=== PATIENT | male | born 1965 | race American Indian/Alaskan Native ===

== ENCOUNTER 2020-04-23 15:58 | Inpatient (IN) | payer SELFPAY ==
--- NOTE | 2020-04-23 17:01 | Emergency Department Report ---
<ETTA KU - Last Filed: 04/23/20 21:46> ED General Adult HPI - General Chief complaint: Dyspnea/Respdistress Stated complaint: SOB Time Seen by Provider: 04/23/20 16:27 - Related Data Home Medications Medication Instructions Recorded Confirmed Last Taken No Known Home Medications [No 04/24/20 04/24/20 Unknown Reported Home Medications] Allergies Allergy/AdvReac Type Severity Reaction Status Date / Time No Known Allergies Allergy Unverified 04/23/20 16:38 ED Past Medical Hx - Medications Home Medications: Home Medications Medication Instructions Recorded Confirmed Last Taken Type No Known Home Medications [No 04/24/20 04/24/20 Unknown History Reported Home Medications] ED Medical Decision Making - Lab Data Result diagrams: 04/23/20 17:12 04/23/20 17:12 - Radiology Data [facility] [address] [id number] Cat Scan Report Signed Patient: MARANDA ACOSTA MR# : [id number] : 1965 Acct:[id number] Age/Sex: 54 / M ADM Date: 04/23/20 Loc: ED Attending Dr: Ordering Physician: ANNE ROSE MD Date of Service: 04/23/20 Procedure(s): CT angio chest Accession Number(s): [id number] cc: ANNE ROSE MD CTA CHEST WITH IV CONTRAST INDICATION: Shortness of breath and elevated d-dimer. TECHNIQUE: Axial CT images were obtained through the chest after injection of 100 mL Omnipaque 350 IV contrast. 3 plane MIP reconstructions were produced. All CT scans at this location are performed using CT dose reduction for ALARA by means of automated exposure control. COMPARISON: None available. FINDINGS: Pulmonary Arteries: No pulmonary emboli. Lungs: No acute findings. There is a 4 mm nodule in the right lower lobe. There is a 4 mm nodule in the medial right upper lobe. Trachea and Bronchi: No significant abnormality. Heart and Pericardium: No significant abnormality. Vasculature: No significant abnormality. Lymphatics: No lymphadenopathy. Additional Findings: None. Upper Abdomen: Multiple renal cysts are seen. Skeletal Structures: No acute findings or aggressive bone lesions. IMPRESSION: 1. No CT evidence for pulmonary embolism. 2. No acute findings. 2. Incidental small 4 mm nodules in the right lung. See below for follow-up rec ommendation. INCIDENTAL PULMONARY NODULE RECOMMENDATION RECOMMENDATION: Solid Nodule size <6 mm -- Single or Multiple - Low Risk Patient: No routine follow-up - High Risk Patient: Optional CT at 12 months Note These recommendations do not apply to lung cancer screening, patients with immunosuppression, or patients with known primary cancer. Note Newly detected indeterminate nodule in persons 35 years of age or older. Persons under the age of 35 should not receive follow-up unless there is a known primary cancer. Note Perifissural Nodule is a fissure-attached/subpleural, homogeneous, solid nodule that has smooth margins and an oval, lentiform, or triangular shape. They represent about 20% of nodules detected in lung cancer screening, are invariably benign, and do not require follow-up. Nodules 10 mm or larger (or those with suspicious features) will continue to be managed based on the size criteria. Low Risk Patient = minimal or absent history of smoking and of other known risk factors. High Risk Patient = history of smoking or of other known risk factors. Nodule dimensions are average of long and short axes, rounded to the nearest millimeter. Based on 2017 Fleischner Society Guidelines found in Radiology 2017 284:228-243. https://doi.org/10.1148/radiol.2837473592 https://www.ncbi.nlm.nih.gov/pmc/articles/PLG5678855/ Signer Name: Chilo Hubbard MD Signed: 04/23/2020 8:11 PM Workstation Name: [id number] Transcribed By: GREGORIA Dictated By: Chilo Hubbard MD Electronically Authenticated By: Chilo Hubbard MD Signed Date/Time: 04/23/202010 - Medical Decision Making Patient to be admitted to the hospitalist service. ED Disposition Clinical Impression: Suspected 2019 novel coronavirus infection, Dyspnea, Hypoxia Disposition: 09 OP ADMIT IP TO THIS HOSP Condition: Fair Time of Disposition: 21:47 <ANNE ROSE - Last Filed: 04/25/20 06:34> ED General Adult HPI - General PUI?: Yes Source: patient, EMS ( EMS documentation not available at time of chart d ictation ), RN notes reviewed Limitations: Physical Limitation - History of Present Illness Initial comments: The patient was evaluated in the emergency department for symptoms described in the history of present illness. He/she was evaluated in the context of the global COVID-19 pandemic, which necessitated consideration that the patient might be at risk for infection with the virus that causes COVID-19. Institutional protocols and algorithms that pertain to the evaluation of patients at risk for COVID-19 are in a state of rapid change based on information released by regulatory bodies including the CDC and federal and stat e organizations. These policies and algorithms were followed during the patient's care in the emergency department. Please note that these policies, procedures and recommendations changed on a rapid basis. During the entire history and physical examination, I had on complete personal protective equipment. This is a 54-year-old gentleman. He is not known to myself previously. He does not have a primary care doctor. He does not have medical conditions that he is aware of. Patient brought to the hospital by emergency medical services with a complaint of painless shortness of breath since last night. Patient denies headache, neck pain, chest pain, abdominal pain, hematemesis, bright red blood per rectum. He recently flew to [place]. No loss of taste. No loss of smell. No exposure to Covid positive individuals that he is aware of. Symptoms constant, worsened with physical exertion, worsened with lying flat, decreased with rest, position, sitting upright, and with oxygen. Apparently, patient hypoxic in the field, saturating at 91, 92% on room air. Requires 4 L of nasal cannula supplemental oxygen. -: days(s) Consistency: constant Improves with: other Worsens with: other ED Review of Systems ROS: Stated complaint: SOB Other details as noted in HPI Comment: All other systems reviewed and negative Constitutional: malaise, weakness. denies: fever ENT: congestion Respiratory: cough, shortness of breath, SOB with exertion, SOB at rest. denies: wheezing Cardiovascular: denies: chest pain, syncope Gastrointestinal: denies: abdominal pain, nausea, vomiting, hematemesis, melena, hematochezia Neurological: weakness ED Past Medical Hx - Past Medical History Previous Medical History?: No - Surgical History Past Surgical History?: No - Social History Smoking Status: Current Every Day Smoker ED Physical Exam - General Limitations: Physical Limitation General appearance: alert, in distress, obese - Head Head exam: Present: atraumatic, normocephalic - Eye Eye exam: Present: normal appearance, EOMI. Absent: nystagmus - ENT ENT exam: Present: normal exam, normal orophraynx, mucous membranes moist, normal external ear exam - Neck Neck exam: Present: normal inspection, full ROM. Absent: tenderness, meningismus - Respiratory Respiratory exam: Present: respiratory distress, rhonchi - Cardiovascular Cardiovascular Exam: Present: regular rate, normal rhythm, normal heart sounds. Absent: bradycardia, tachycardia, irregular rhythm, systolic murmur, diastolic murmur, rubs, gallop - GI/Abdominal GI/Abdominal exam: Present: soft, normal bowel sounds. Absent: distended, tenderness, guarding, rebound, rigid, pulsatile mass - Rectal Rectal exam: Present: deferred - Extremities Exam Extremities exam: Present: normal inspection, full ROM, other (2+ pulses noted in the bilateral upper and lower extremities. There is no palpable cord. negative Homans sign. Muscular compartments are soft. The pelvis is stable.). Absent: pedal edema, calf tenderness - Back Exam Back exam: Present: normal inspection, full ROM. Absent: tenderness, CVA tenderness (R), CVA tenderness (L), paraspinal tenderness, vertebral tenderness - Neurological Exam Neurological exam: Present: alert, other (No facial droop. Tongue midline. Extraocular movements intact bilaterally. Facial sensation intact to light touch in V1, V2, V3 distribution bilaterally. 5 and a 5 strength in 4 extremities. Sensation intact to light touch in 4 extremities.). Absent: motor sensory deficit - Psychiatric Psychiatric exam: Present: anxious - Skin Skin exam: Present: warm, dry, intact, normal color. Absent: rash ED Course Vital Signs 04/23/20 04/23/20 04/23/20 17:50 19:01 19:15 Temperature Pulse Rate 99 H Respiratory 16 Rate Blood Pressure 136/67 136/67 Blood Pressure 154/91 [Left] O2 Sat by Pulse 93 94 96 Oximetry 04/23/20 04/23/20 04/23/20 19:30 19:57 20:01 Temperature Pulse Rate 100 H Respiratory 19 Rate Blood Pressure 131/107 131/107 158/80 Blood Pressure [Left] O2 Sat by Pulse 93 95 95 Oximetry 04/23/20 04/23/20 04/23/20 20:02 20:15 20:31 Temperature 98.9 F Pulse Rate 110 H 104 H Respiratory 27 H 36 H Rate Blood Pressure 158/80 158/80 Blood Pressure [Left] O2 Sat by Pulse Oximetry 04/23/20 04/23/20 04/23/20 20:45 21:01 21:15 Temperature Pulse Rate 99 H 120 H Respiratory 19 17 25 H Rate Blood Pressure 158/80 120/102 120/102 Blood Pressure [Left] O2 Sat by Pulse Oximetry 04/23/20 04/23/20 04/23/20 21:31 21:45 22:01 Temperature Pulse Rate 103 H 99 H 103 H Respiratory 25 H 27 H 22 Rate Blood Pressure 143/83 143/83 150/92 Blood Pressure [Left] O2 Sat by Pulse Oximetry 04/23/20 04/23/20 04/23/20 22:15 22:26 22:30 Temperature Pulse Rate 97 H 110 H Respiratory 20 30 H Rate Blood Pressure 150/92 150/92 137/71 Blood Pressure [Left] O2 Sat by Pulse Oximetry 04/23/20 04/23/20 04/23/20 23:01 23:15 23:21 Temperature Pulse Rate 97 H 112 H Respiratory 24 31 H Rate Blood Pressure 159/72 159/72 159/72 Blood Pressure [Left] O2 Sat by Pulse 90 92 Oximetry 04/23/20 04/23/20 04/24/20 23:31 23:45 00:00 Temperature Pulse Rate 96 H 91 H 96 H Respiratory 19 18 25 H Rate Blood Pressure 170/97 159/72 145/83 Blood Pressure [Left] O2 Sat by Pulse 90 96 98 Oximetry 04/24/20 04/24/20 04/24/20 00:15 00:30 00:45 Temperature Pulse Rate 93 H 102 H 93 H Respiratory 25 H 22 27 H Rate Blood Pressure 145/83 139/87 139/87 Blood Pressure [Left] O2 Sat by Pulse 97 92 95 Oximetry 04/24/20 04/24/20 04/24/20 01:00 01:15 01:31 Temperature Pulse Rate 86 82 Respiratory 23 18 24 Rate Blood Pressure 149/75 149/75 123/74 Blood Pressure [Left] O2 Sat by Pulse 93 98 Oximetry 04/24/20 04/24/20 04/24/20 01:45 02:00 02:15 Temperature Pulse Rate 86 91 H Respiratory 22 25 H 24 Rate Blood Pressure 123/74 133/78 133/78 Blood Pressure [Left] O2 Sat by Pulse Oximetry 04/24/20 04/24/20 04/24/20 02:30 02:45 03:00 Temperature Pulse Rate 94 H 105 H 88 Respiratory 24 33 H 26 H Rate Blood Pressure 163/73 163/73 102/56 Blood Pressure [Left] O2 Sat by Pulse 90 Oximetry 04/24/20 04/24/20 04/24/20 03:15 03:30 03:45 Temperature Pulse Rate 93 H 90 100 H Respiratory 24 21 30 H Rate Blood Pressure 102/56 125/76 125/76 Blood Pressure [Left] O2 Sat by Pulse Oximetry 04/24/20 04/24/20 04/24/20 04:00 04:15 04:30 Temperature Pulse Rate 83 85 83 Respiratory 21 23 22 Rate Blood Pressure 123/58 123/58 128/63 Blood Pressure [Left] O2 Sat by Pulse Oximetry 04/24/20 04/24/20 04/24/20 06:15 06:30 06:45 Temperature Pulse Rate 92 H 87 85 Respiratory 20 21 18 Rate Blood Pressure 146/73 142/85 132/79 Blood Pressure [Left] O2 Sat by Pulse Oximetry 04/24/20 04/24/20 04/24/20 07:00 07:15 07:31 Temperature Pulse Rate 87 91 H 119 H Respiratory 35 H 19 28 H Rate Blood Pressure 121/67 121/67 121/67 Blood Pressure [Left] O2 Sat by Pulse Oximetry 04/24/20 04/24/20 04/24/20 07:45 08:00 08:15 Temperature Pulse Rate 93 H 96 H 96 H Respiratory 24 21 30 H Rate Blood Pressure 121/67 118/88 118/88 Blood Pressure [Left] O2 Sat by Pulse Oximetry 04/24/20 04/24/20 04/24/20 08:30 08:45 09:01 Temperature Pulse Rate 92 H 96 H 96 H Respiratory 31 H 22 28 H Rate Blood Pressure 138/68 138/68 138/68 Blood Pressure [Left] O2 Sat by Pulse Oximetry 04/24/20 04/24/20 04/24/20 09:15 09:31 09:45 Temperature Pulse Rate 91 H 93 H 89 Respiratory 37 H 22 22 Rate Blood Pressure 136/109 140/78 140/78 Blood Pressure [Left] O2 Sat by Pulse Oximetry 04/24/20 04/24/20 04/24/20 10:00 10:15 10:30 Temperature Pulse Rate 87 82 82 Respiratory 24 21 20 Rate Blood Pressure 137/93 137/93 139/82 Blood Pressure [Left] O2 Sat by Pulse Oximetry 04/24/20 04/24/20 04/24/20 10:45 11:01 11:15 Temperature Pulse Rate 94 H 92 H 93 H Respiratory 25 H 21 21 Rate Blood Pressure 139/82 134/48 134/48 Blood Pressure [Left] O2 Sat by Pulse Oximetry 04/24/20 04/24/20 04/24/20 11:31 11:45 12:01 Temperature Pulse Rate 99 H 106 H 93 H Respiratory 32 H 34 H 24 Rate Blood Pressure 153/84 153/84 156/126 Blood Pressure [Left] O2 Sat by Pulse Oximetry 04/24/20 04/24/20 04/24/20 12:15 12:31 12:45 Temperature Pulse Rate 97 H 95 H 94 H Respiratory 19 15 24 Rate Blood Pressure 156/126 126/67 126/67 Blood Pressure [Left] O2 Sat by Pulse Oximetry 04/24/20 04/24/20 04/24/20 13:01 13:15 13:31 Temperature Pulse Rate 102 H 97 H 94 H Respiratory 36 H 23 25 H Rate Blood Pressure 166/136 166/136 129/60 Blood Pressure [Left] O2 Sat by Pulse Oximetry 04/24/20 04/24/20 04/24/20 13:45 14:00 14:15 Temperature Pulse Rate 94 H 94 H 109 H Respiratory 24 26 H 21 Rate Blood Pressure 129/60 129/60 162/86 Blood Pressure [Left] O2 Sat by Pulse Oximetry 04/24/20 04/24/20 04/24/20 14:31 14:45 15:01 Temperature Pulse Rate 94 H 97 H 100 H Respiratory 34 H 29 H 30 H Rate Blood Pressure 138/85 138/85 138/85 Blood Pressure [Left] O2 Sat by Pulse Oximetry 04/24/20 04/24/20 04/24/20 15:15 15:30 15:45 Temperature Pulse Rate 98 H 85 91 H Respiratory 22 19 32 H Rate Blood Pressure 125/90 126/76 126/76 Blood Pressure [Left] O2 Sat by Pulse Oximetry 04/24/20 04/24/20 04/24/20 16:01 16:15 16:30 Temperature Pulse Rate 89 89 87 Respiratory 27 H 22 25 H Rate Blood Pressure 126/76 101/74 140/97 Blood Pressure [Left] O2 Sat by Pulse Oximetry 04/24/20 04/24/20 04/24/20 16:45 17:01 17:15 Temperature Pulse Rate 97 H 94 H 110 H Respiratory 35 H 38 H 31 H Rate Blood Pressure 140/97 140/97 140/97 Blood Pressure [Left] O2 Sat by Pulse Oximetry 04/24/20 04/24/20 04/24/20 17:31 17:45 18:01 Temperature Pulse Rate 100 H 100 H 96 H Respiratory 27 H 35 H 28 H Rate Blood Pressure 140/97 168/104 147/107 Blood Pressure [Left] O2 Sat by Pulse Oximetry 04/24/20 04/24/20 04/24/20 18:15 18:31 18:46 Temperature Pulse Rate 95 H 92 H 94 H Respiratory 37 H 38 H 29 H Rate Blood Pressure 147/107 140/118 140/118 Blood Pressure [Left] O2 Sat by Pulse Oximetry 04/24/20 04/24/20 04/24/20 19:00 19:15 19:30 Temperature Pulse Rate 94 H 90 94 H Respiratory 31 H 34 H 29 H Rate Blood Pressure 164/112 140/118 151/99 Blood Pressure [Left] O2 Sat by Pulse Oximetry 04/24/20 04/24/20 04/24/20 19:33 19:41 19:51 Temperature Pulse Rate 94 H 87 87 Respiratory 18 19 20 Rate Blood Pressure 151/99 151/99 Blood Pressure 151/90 [Left] O2 Sat by Pulse Oximetry 04/24/20 20:01 Temperature Pulse Rate 85 Respiratory 23 Rate Blood Pressure 149/80 Blood Pressure [Left] O2 Sat by Pulse Oximetry - Reevaluation(s) Reevaluation #1: 04/23/20 19:31 Differential diagnosis, including but not limited to: COVID-19, pneumonia, congestive heart failure, pulmonary embolism, pericardial effusion Anemia Assessment and plan: 54-year-old gentleman status post recent [place] flight to [place], now with painless shortness of breath, requiring supplemental oxygen. Initiate isolation precautions. Send appropriate Covid labs. Give patient steroids empirically, x-ray the chest clear, continue supplemental oxygen, D- dimer elevated, CT scan of the chest will be obtained. Anticipate admission once initial diagnostics have resulted. Discussed plan of care with the patient, who verbalized understanding, and is amenable to this plan of care. Care will be transferred to the oncoming ER physician, Dr. Thong Ku, To follow- up on CT scan of the chest, and admit patient to the appropriate service. ED Medical Decision Making - Lab Data Result diagrams: 04/23/20 17:12 04/23/20 17:12 Vital Signs 04/23/20 17:50 Pulse Rate 99 H Respiratory 16 Rate Blood Pressure 154/91 [Left] O2 Sat by Pulse 93 Oximetry Lab Results 04/23/20 04/23/20 04/23/20 Range/Units 17:12 17:12 17:12 WBC 13.0 H (4.5-11.0) K/mm3 RBC 4.55 (3.65-5.03) M/mm3 Hgb 13.6 (11.8-15.2) gm/dl Hct 39.2 (35.5-45.6) % MCV 86 (84-94) fl MCH 30 (28-32) pg MCHC 35 H (32-34) % RDW 15.0 (13.2-15.2) % Plt Count 313 (140-440) K/mm3 Lymph % (Auto) 8.7 L (13.4-35.0) % Cook % (Auto) 5.5 (0.0-7.3) % Eos % (Auto) 0.8 (0.0-4.3) % Baso % (Auto) 0.3 (0.0-1.8) % Lymph # (Auto) 1.1 L (1.2-5.4) K/mm3 Cook # (Auto) 0.7 (0.0-0.8) K/mm3 Eos # (Auto) 0.1 (0.0-0.4) K/mm3 Baso # (Auto) 0.0 (0.0-0.1) K/mm3 Seg Neutrophils % 84.7 H (40.0-70.0) % Seg Neutrophils # 11.0 H (1.8-7.7) K/mm3 PT 12.2 (12.2-14.9) Sec. INR 0.89 (0.87-1.13) D-Dimer 758.91 H (0-234) ng/mlDDU Sodium 142 (137-145) mmol/L Potassium 3.5 L (3.6-5.0) mmol/L Chloride 105.1 (98-107) mmol/L Carbon Dioxide 28 (22-30) mmol/L Anion Gap 12 mmol/L BUN 9 (9-20) mg/dL Creatinine 1.0 (0.8-1.3) mg/dL Estimated GFR > 60 ml/min BUN/Creatinine Ratio 9 % Glucose 100 (75-100) mg/dL Lactic Acid (0.7-2.0) mmol/L Calcium 9.4 (8.4-10.2) mg/dL Magnesium 1.90 (1.7-2.3) mg/dL Ferritin (30.0-300.0) ng/mL Total Bilirubin 0.30 (0.1-1.2) mg/dL AST 21 (5-40) units/L ALT 18 (7-56) units/L Alkaline Phosphatase 70 (35-129) units/L Lactate Dehydrogenase 215 H (91-180) units/L Total Creatine Kinase 429 H (55-170) units/L Troponin T (0.00-0.029) ng/mL C-Reactive Protein 4.40 H (0.00-1.30) mg/dL NT-Pro-B Natriuret Pep (0-900) pg/mL Total Protein 7.8 (6.3-8.2) g/dL Albumin 4.2 (3.9-5) g/dL Albumin/Globulin Ratio 1.2 % 04/23/20 04/23/20 04/23/20 Range/Units 17:12 17:12 17:12 WBC (4.5-11.0) K/mm3 RBC (3.65-5.03) M/mm3 Hgb (11.8-15.2) gm/dl Hct (35.5-45.6) % MCV (84-94) fl MCH (28-32) pg MCHC (32-34) % RDW (13.2-15.2) % Plt Count (140-440) K/mm3 Lymph % (Auto) (13.4-35.0) % Cook % (Auto) (0.0-7.3) % Eos % (Auto) (0.0-4.3) % Baso % (Auto) (0.0-1.8) % Lymph # (Auto) (1.2-5.4) K/mm3 Cook # (Auto) (0.0-0.8) K/mm3 Eos # (Auto) (0.0-0.4) K/mm3 Baso # (Auto) (0.0-0.1) K/mm3 Seg Neutrophils % (40.0-70.0) % Seg Neutrophils # (1.8-7.7) K/mm3 PT (12.2-14.9) Sec. INR (0.87-1.13) D-Dimer (0-234) ng/mlDDU Sodium (137-145) mmol/L Potassium (3.6-5.0) mmol/L Chloride (98-107) mmol/L Carbon Dioxide (22-30) mmol/L Anion Gap mmol/L BUN (9-20) mg/dL Creatinine (0.8-1.3) mg/dL Estimated GFR ml/min BUN/Creatinine Ratio % Glucose (75-100) mg/dL Lactic Acid 1.00 (0.7-2.0) mmol/L Calcium (8.4-10.2) mg/dL Magnesium (1.7-2.3) mg/dL Ferritin 438.2 H (30.0-300.0) ng/mL Total Bilirubin (0.1-1.2) mg/dL AST (5-40) units/L ALT (7-56) units/L Alkaline Phosphatase (35-129) units/L Lactate Dehydrogenase (91-180) units/L Total Creatine Kinase (55-170) units/L Troponin T < 0.010 (0.00-0.029) ng/mL C-Reactive Protein (0.00-1.30) mg/dL NT-Pro-B Natriuret Pep 134.1 (0-900) pg/mL Total Protein (6.3-8.2) g/dL Albumin (3.9-5) g/dL Albumin/Globulin Ratio % - EKG Data 04/23/20 19:28 No prior EKG available for comparison. Sinus rhythm, 92 bpm, left axis deviation, left anterior fascicular block, left ventricular hypertrophy, low voltage in the inferior leads. The EKG is abnormal. The EKG is not a STEMI. First-degree AV block. No prior for comparison - Radiology Data Radiology results: pending, report reviewed, image reviewed Print Report Referring Physician: ANNE ROSE Patient Name: MARANDA ACOSTA Date of : 1965 Sex: Male Report Date: 2020-04-23 Report Status: Finalized Findings [facility] [address] [place] [address] XRay Report Signed Patient: MARANDA ACOSTA MR# : [id number] : 1965 Acct:[id number] Age/Sex: 54 / M ADM Date: 04/23/20 Loc: ED Attending Dr: Ordering Physician: ANNE ROSE MD Date of Service: 04/23/20 Procedure(s): XR chest 1V ap Accession Number(s): [id number] cc: ANNE ROSE MD Fluoro Time In Minutes: CHEST 1 VIEW 04/23/2020 4:54 PM INDICATION / CLINICAL INFORMATION: Dyspnea. COMPARISON: None available. FINDINGS: SUPPORT DEVICES: None. HEART / MEDIASTINUM: No significant abnormality. LUNGS / PLEURA: No significant pulmonary or pleural abnormality. No pneumothorax. ADDITIONAL FINDINGS: No significant additional findings. IMPRESSION: 1. No acute findings. Signer Name: Chilo Hubbard MD Signed: 04/23/2020 5:55 PM Workstation Name: [id number] Transcribed By: GREGORIA Dictated By: Chilo Hubbard MD Electronically Authenticated By: Chilo Hubbard MD Signed Date/Time: 04/23/201754 DD/ 54 TD/TT: Critical Care Time: Yes Critical care time in (mins) excluding proc time.: 35 Critical care attestation.: If time is entered above; I have spent that time in minutes in the direct care of this critically ill patient, excluding procedure time. ED Disposition Is pt being admited?: Yes Does the pt Need Aspirin: No
--- NOTE | 2020-04-23 18:00 | XRay Report ---
CHEST 1 VIEW 04/23/2020 4:54 PM INDICATION / CLINICAL INFORMATION: Dyspnea. COMPARISON: None available. FINDINGS: SUPPORT DEVICES: None. HEART / MEDIASTINUM: No significant abnormality. LUNGS / PLEURA: No significant pulmonary or pleural abnormality. No pneumothorax. ADDITIONAL FINDINGS: No significant additional findings. IMPRESSION: 1. No acute findings. Signer Name: Chilo Hubbard MD Signed: 04/23/2020 5:55 PM Workstation Name: [id number]
[2020-04-23 18:10] LABS: Basophils % (Auto) 0.3 % (0.0-1.8); Eosinophils # (Auto) 0.1 K/mm3 (0.0-0.4); Eosinophils % (Auto) 0.8 % (0.0-4.3); Hematocrit 39.2 % (35.5-45.6); Hemoglobin 13.6 gm/dl (11.8-15.2); Lymphocytes # (Auto) 1.1 K/mm3 (1.2-5.4); Lymphocytes % (Auto) 8.7 % (13.4-35.0); Mean Corpuscular HGB Conc 35 % (32-34); Mean Corpuscular Volume 86 fl (84-94); Monocytes # (Auto) 0.7 K/mm3 (0.0-0.8); Monocytes % (Auto) 5.5 % (0.0-7.3); Platelet Count 313 K/mm3 (140-440); Red Blood Count 4.55 M/mm3 (3.65-5.03)
[2020-04-23 18:12] LABS: Alanine Aminotransferase 18 units/L (7-56); Albumin 4.2 g/dL (3.9-5); BUN/Creatinine Ratio 9; Blood Urea Nitrogen 9 mg/dL (9-20); Calcium 9.4 mg/dL (8.4-10.2); Hemolysis Index 4
[2020-04-23 18:24] LABS: INR 0.89 (0.87-1.13)
[2020-04-23] MEDS ORDERED: dexAMETHasone 4 MG/ML VIAL IV ONE (18:31)
[2020-04-23] MEDS ORDERED: SODIUM CHLORIDE 0.9% 250ML 250 ML IV ONE (18:32)
--- NOTE | 2020-04-23 20:16 | Cat Scan Report ---
CTA CHEST WITH IV CONTRAST INDICATION: Shortness of breath and elevated d-dimer. TECHNIQUE: Axial CT images were obtained through the chest after injection of 100 mL Omnipaque 350 IV contrast. 3 plane MIP reconstructions were produced. All CT scans at this location are performed using CT dose reduction for ALARA by means of automated exposure control. COMPARISON: None available. FINDINGS: Pulmonary Arteries: No pulmonary emboli. Lungs: No acute findings. There is a 4 mm nodule in the right lower lobe. There is a 4 mm nodule in t he medial right upper lobe. Trachea and Bronchi: No significant abnormality. Heart and Pericardium: No significant abnormality. Vasculature: No significant abnormality. Lymphatics: No lymphadenopathy. Additional Findings: None. Upper Abdomen: Multiple renal cysts are seen. Skeletal Structures: No acute findings or aggressive bone lesions. IMPRESSION: 1. No CT evidence for pulmonary embolism. 2. No acute findings. 2. Incidental small 4 mm nodules in the right lung. See below for follow-up recommendation. INCIDENTAL PULMONARY NODULE RECOMMENDATION RECOMMENDATION: Solid Nodule size <6 mm -- Single or Multiple - Low Risk Patient: No routine follow-up - High Risk Patient: Optional CT at 12 months Note These recommendations do not apply to lung cancer screening, patients with immunosuppression, o r patients with known primary cancer. Note Newly detected indeterminate nodule in persons 35 years of age or older. Persons under the age of 35 should not receive follow-up unless there is a known primary cancer. Note Perifissural Nodule is a fissure-attached/subpleural, homogeneous, solid nodule that has smooth margins and an oval, lentiform, or triangular shape. They represent about 20% of nodules detected in lung cancer screening, are invariably benign, and do not require follow-up. Nodules 10 mm or larger (or those with suspicious features) will continue to be managed based on the size criteria. Low Risk Patient = minimal or absent history of smoking and of other known risk factors. High Risk Patient = history of smoking or of other known risk factors. Nodule dimensions are average of long and short axes, rounded to the nearest millimeter. Based on 2017 Fleischner Society Guidelines found in Radiology 2017 284:228-243. https://doi.org/10.1148/radiol.[email or web address] https://www.ncbi.nlm.nih.gov/pmc/articles/OOT0232943/ Signer Name: Chilo Hubbard MD Signed: 04/23/2020 8:11 PM Workstation Name: [id number]
[2020-04-23] MEDS ORDERED: ALUM-MAG HYDROXIDE-SIMETHICONE 200-200-20MG/5ML ORAL LIQD 30 ML PO PRN (22:34)
[2020-04-23] MEDS ORDERED: ONDANSETRON 4 MG/2 ML INJ IV PRN (22:34)
[2020-04-23] MEDS ORDERED: ACETAMINOPHEN 325 MG TAB PO PRN (22:36)
[2020-04-23] MEDS ORDERED: hydrALAZINE 20 MG/1 ML INJ IV PRN (22:37)
--- NOTE | 2020-04-23 22:39 | History and Physical Report ---
History of Present Illness Date of examination: 04/23/20 Date of admission: 04/23/20 Chief complaint: Shortness of breath History of present illness: This is a 54 year old male who presents to ED with worsening shortness of breath and cough. 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 He is evaluated in the context of the global COVID-19 pandemic, which necessitated consideration that the patient might be at risk for infection with the virus that causes COVID-19. patient seen in ED at bedside. patient has shortness of breath, cough and wheezing at the time of assessment. Patient admits marijuana use and he is on oxygen with 02 sat 96 to 98 %. Reviewed lab, mar, and v/s. patient lab shows elevated inflammatory makers including d-dimer, ferritin, LDH, and CRP. Patient is placed on airborne contact isolation pending covid 19 test result. Ed work up shows WBC 13.0, potassium 3.5, C02 28, Cr 1.0, ferritin 438, d-dimer 758 Hemoglobin 13.6 Chest x-ray shows no acute finding Past History Past Surgical History: No surgical history Social history: no significant social history Family history: no significant family history Medications and Allergies Allergies Allergy/AdvReac Type Severity Reaction Status Date / Time No Known Allergies Allergy Unverified 04/23/20 16:38 Review of Systems Ears, nose, mouth and throat: headache Respiratory: cough, congestion, wheezing Gastrointestinal: nausea Exam - Constitutional Vitals: Temp Pulse Resp BP Pulse Ox 98.9 F 99 H 17 131/107 93 04/23/20 20:02 04/23/20 17:50 04/23/20 17:50 04/23/20 19:30 04/23/20 19:30 General appearance: Present: mild distress, obese - EENT Eyes: Present: PERRL ENT: hearing intact, clear oral mucosa - Neck Neck: Present: supple, normal ROM - Respiratory Respiratory effort: other (shortness of breath and cough) Respiratory: bilateral: wheezing - Cardiovascular Heart rate: 99 Heart Sounds: Present: S1 & S2. Absent: rub, click - Extremities Extremities: pulses symmetrical, No edema Peripheral Pulses: within normal limits - Integumentary Integumentary: Present: clear - Musculoskeletal Musculoskeletal: strength equal bilaterally - Psychiatric Psychiatric: appropriate mood/affect, intact judgment & insight, cooperative - Neurologic Neurologic: CNII-XII intact, moves all extremities - Allied Health Allied health notes reviewed: nursing HEART Score - HEART Score Troponin: Troponin T < 0.010 ng/mL (0.00-0.029) 04/23/20 17:12 Results - Labs CBC & Chem 7: 04/23/20 17:12 04/23/20 17:12 Labs: Abnormal lab results 04/23/20 04/23/20 04/23/20 Range/Units 17:12 17:12 17:12 WBC 13.0 H (4.5-11.0) K/mm3 MCHC 35 H (32-34) % Lymph % (Auto) 8.7 L (13.4-35.0) % Lymph # (Auto) 1.1 L (1.2-5.4) K/mm3 Seg Neutrophils % 84.7 H (40.0-70.0) % Seg Neutrophils # 11.0 H (1.8-7.7) K/mm3 D-Dimer 758.91 H (0-234) ng/mlDDU Potassium 3.5 L (3.6-5.0) mmol/L Ferritin (30.0-300.0) ng/mL Lactate Dehydrogenase 215 H (91-180) units/L Total Creatine Kinase 429 H (55-170) units/L C-Reactive Protein 4.40 H (0.00-1.30) mg/dL 04/23/20 Range/Units 17:12 WBC (4.5-11.0) K/mm3 MCHC (32-34) % Lymph % (Auto) (13.4-35.0) % Lymph # (Auto) (1.2-5.4) K/mm3 Seg Neutrophils % (40.0-70.0) % Seg Neutrophils # (1.8-7.7) K/mm3 D-Dimer (0-234) ng/mlDDU Potassium (3.6-5.0) mmol/L Ferritin 438.2 H (30.0-300.0) ng/mL Lactate Dehydrogenase (91-180) units/L Total Creatine Kinase (55-170) units/L C-Reactive Protein (0.00-1.30) mg/dL Assessment and Plan - Patient Problems (1) Suspected 2019 novel coronavirus infection Current Visit: Yes Status: Acute Plan to address problem: Elevated inflammatory makers F/u with covid 19 test continue airborne and contact Isolation (2) Acute respiratory failure with hypoxia Current Visit: Yes Status: Acute Plan to address problem: Likely 2/2 covid viral infection Bronchodilator and systemic steroid Empiric abx with azithromycin (3) Dyspnea Current Visit: Yes Status: Acute Plan to address problem: shortness of breath with wheezing on auscultation continue oxygen supplement and systemic steroids Chest x-ray -no acute finding ABgs (4) Marijuana smoker Current Visit: Yes Status: Acute Plan to address problem: discussed cannabis use cessation (5) Leucocytosis Current Visit: Yes Status: Acute Plan to address problem: likely 2/2 to viral/bacterial infection Blood culture -f/u with result Urinalysis Start empiric abx with rocephine Chest x-ray negative for acute finding monitor WBC (6) DVT prophylaxis Current Visit: Yes Status: Acute Plan to address problem: Lovenox (7) ACP (advance care planning) Current Visit: Yes Status: Acute Plan to address problem: discussed plan of care patient is full code
[2020-04-24] MEDS: traZODone 50 MG TAB PO SCH ×2 (00:21→21:28)
[2020-04-24] MEDS: ASCORBIC ACID 500 MG TAB PO SCH ×3 (00:21→21:28)
[2020-04-24 03:16] LABS: Bilirubin,Urine NEG (Negative); Blood,Urine LG (Negative); Color,Urine Yellow (Yellow); Mucus,Urine FEW /HPF; Protein,Urine <15 mg/dL mg/dL (Negative); Urobilinogen,Urine < 2.0 mg/dL (<2.0)
[2020-04-24] MEDS ORDERED: ENOXAPARIN 40 MG/0.4 ML INJ SUB-Q ONE (09:59)
[2020-04-24] MEDS ORDERED: dexAMETHasone 4 MG/ML VIAL ONE (09:59)
[2020-04-24] MEDS ORDERED: AZITHROMYCIN 500 MG in SODIUM CHLORIDE 0.9% 250ML 250 ML IV SCH (10:00)
[2020-04-24] MEDS: dexAMETHasone 4 MG/ML VIAL IV SCH (10:36)
[2020-04-24] MEDS: ZINC SULFATE 220 MG CAP PO SCH (10:36)
[2020-04-24] MEDS: ENOXAPARIN 40 MG/0.4 ML INJ SUB-Q SCH (10:41)
--- NOTE | 2020-04-24 18:59 | Progress Note ---
Assessment and Plan Assessment and plan: This is a 54 year old male who presents to ED with worsening shortness of breath and cough. 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 He is evaluated in the context of the global COVID-19 pandemic, which necessitated consideration that the patient might be at risk for infection with the virus that causes COVID-19. patient seen in ED at bedside. patient has shortness of breath, cough and wheezing at the time of assessment. Patient admits marijuana use and he is on oxygen with 02 sat 96 to 98 %. Reviewed lab, mar, and v/s. patient lab shows elevated inflammatory makers including d-dimer, ferritin, LDH, and CRP. Patient is placed on airborne contact isolation pending covid 19 test result. Ed work up shows WBC 13.0, potassium 3.5, C02 28, Cr 1.0, ferritin 438, d-dimer 758 Hemoglobin 13.6 Chest x-ray shows no acute finding On further discussion he reports recent contact with a sick friend but does not know the person has Covid. His girlfriend had Covid about [address] angio chest 1. No CT evidence for pulmonary embolism. 2. No acute findings. 2. Incidental small 4 mm nodules in the right lung. See below for follow-up recommendation. (1) 2019 novel coronavirus infection Current Visit: Yes Status: Acute Plan to address problem: Elevated inflammatory makers COVID-19 status discussed with patient. continue airborne and contact Isolation ID consulted Started on dexamethasone no indication for remdesivir at this time as patient saturations 95% with no further noted hypoxia. (2) Acute respiratory failure with hypoxia possible underlining bronchitis in addition to COVID-19 Current Visit: Yes Status: Acute Plan to address problem: Likely 2/2 covid viral infection Bronchodilator and systemic steroid Empiric abx with azithromycin (3) Dyspnea Current Visit: Yes Status: Acute Plan to address problem: shortness of breath with wheezing on auscultation continue oxygen supplement and systemic steroids Chest x-ray -no acute finding ABgs (4) Marijuana smoker Current Visit: Yes Status: Acute Plan to address problem: discussed cannabis use cessation 15 minutes counseling provided patient also still smokes cigars. (5) Leucocytosis Current Visit: Yes Status: Acute Plan to address problem: likely 2/2 to viral/bacterial infection Blood culture -f/u with result Urinalysis Start empiric abx with rocephine Chest x-ray negative for acute finding monitor WBC (6) DVT prophylaxis Current Visit: Yes Status: Acute Plan to address problem: Lovenox (7) ACP (advance care planning) Current Visit: Yes Status: Acute Plan to address problem: discussed plan of care patient is full code History Interval history: Patient seen and examined reports some improvement. Discussed with nursing staff oxygenation 95% on room air. Patient continues to have cough. Hospitalist Physical - Physical exam Narrative exam: VITAL SIGNS: Reviewed. GENERAL: The patient appears normally developed, cough morbidly vital signs as documented. HEAD: No signs of head trauma. EYES: Pupils are equal. Extraocular motions intact. EARS: Hearing grossly intact. MOUTH: Oropharynx is normal except missing dentition. NECK: No adenopathy, no JVD. CHEST: Chest with crackles breath sounds bilaterally. No wheezes, rales, or rhonchi. CARDIAC: Regular rate and rhythm. S1 and S2, without murmurs, gallops, or rubs. VASCULAR: No Edema. Peripheral pulses normal and equal in all extremities. ABDOMEN: Soft, non tender and non distended. No rebound or guarding, and no masses palpated. Bowel Sounds normal. MUSCULOSKELETAL: Good range of motion of all major joints. Extremities without clubbing, cyanosis or edema. NEUROLOGIC EXAM: Alert and oriented x 3 No focal sensory or strength deficits. Speech normal. Follows commands. PSYCHIATRIC: Mood normal. SKIN: detail exam as documented in skin assessment - Constitutional Vitals: Temp Pulse Resp BP Pulse Ox 98.9 F 92 H 38 H 140/118 90 04/23/20 20:02 04/24/20 18:31 04/24/20 18:31 04/24/20 18:31 04/24/20 02:30 General appearance: Present: mild distress, obese HEART Score - HEART Score Troponin: Troponin T < 0.010 ng/mL (0.00-0.029) 04/23/20 17:12 Results - Labs CBC & Chem 7: 04/23/20 17:12 04/23/20 17:12 Labs: Laboratory Last Values WBC 13.0 K/mm3 (4.5-11.0) H 04/23/20 17:12 RBC 4.55 M/mm3 (3.65-5.03) 04/23/20 17:12 Hgb 13.6 gm/dl (11.8-15.2) 04/23/20 17:12 Hct 39.2 % (35.5-45.6) 04/23/20 17:12 MCV 86 fl (84-94) 04/23/20 17:12 MCH 30 pg (28-32) 04/23/20 17:12 MCHC 35 % (32-34) H 04/23/20 17:12 RDW 15.0 % (13.2-15.2) 04/23/20 17:12 Plt Count 313 K/mm3 (140-440) 04/23/20 17:12 Lymph % (Auto) 8.7 % (13.4-35.0) L 04/23/20 17:12 [place] % (Auto) 5.5 % (0.0-7.3) 04/23/20 17:12 Eos % (Auto) 0.8 % (0.0-4.3) 04/23/20 17:12 Baso % (Auto) 0.3 % (0.0-1.8) 04/23/20 17:12 Lymph # (Auto) 1.1 K/mm3 (1.2-5.4) L 04/23/20 17:12 [place] # (Auto) 0.7 K/mm3 (0.0-0.8) 04/23/20 17:12 Eos # (Auto) 0.1 K/mm3 (0.0-0.4) 04/23/20 17:12 Baso # (Auto) 0.0 K/mm3 (0.0-0.1) 04/23/20 17:12 Seg Neutrophils % 84.7 % (40.0-70.0) H 04/23/20 17:12 Seg Neutrophils # 11.0 K/mm3 (1.8-7.7) H 04/23/20 17:12 PT 12.2 Sec. (12.2-14.9) 04/23/20 17:12 INR 0.89 (0.87-1.13) 04/23/20 17:12 D-Dimer 758.91 ng/mlDDU (0-234) H 04/23/20 17:12 Sodium 142 mmol/L (137-145) 04/23/20 17:12 Potassium 3.5 mmol/L (3.6-5.0) L 04/23/20 17:12 Chloride 105.1 mmol/L (98-107) 04/23/20 17:12 Carbon Dioxide 28 mmol/L (22-30) 04/23/20 17:12 Anion Gap 12 mmol/L 04/23/20 17:12 BUN 9 mg/dL (9-20) 04/23/20 17:12 Creatinine 1.0 mg/dL (0.8-1.3) 04/23/20 17:12 Estimated GFR > 60 ml/min 04/23/20 17:12 BUN/Creatinine Ratio 9 % 04/23/20 17:12 Glucose 100 mg/dL (75-100) 04/23/20 17:12 Lactic Acid 1.00 mmol/L (0.7-2.0) 04/23/20 17:12 Calcium 9.4 mg/dL (8.4-10.2) 04/23/20 17:12 Magnesium 1.90 mg/dL (1.7-2.3) 04/23/20 17:12 Ferritin 438.2 ng/mL (30.0-300.0) H 04/23/20 17:12 Total Bilirubin 0.30 mg/dL (0.1-1.2) 04/23/20 17:12 AST 21 units/L (5-40) 04/23/20 17:12 ALT 18 units/L (7-56) 04/23/20 17:12 Alkaline Phosphatase 70 units/L (35-129) 04/23/20 17:12 Lactate Dehydrogenase 215 units/L (91-180) H 04/23/20 17:12 Total Creatine Kinase 429 units/L (55-170) H 04/23/20 17:12 Troponin T < 0.010 ng/mL (0.00-0.029) 04/23/20 17:12 C-Reactive Protein 4.40 mg/dL (0.00-1.30) H 04/23/20 17:12 NT-Pro-B Natriuret Pep 134.1 pg/mL (0-900) 04/23/20 17:12 Total Protein 7.8 g/dL (6.3-8.2) 04/23/20 17:12 Albumin 4.2 g/dL (3.9-5) 04/23/20 17:12 Albumin/Globulin Ratio 1.2 % 04/23/20 17:12 Procalcitonin 0.07 ng/mL (<0.15) 04/23/20 17:12 Urine Color Yellow (Yellow) 04/24/20 02:32 Urine Turbidity Clear (Clear) 04/24/20 02:32 Urine pH 6.0 (5.0-7.0) 04/24/20 02:32 Ur Specific [place] 1.038 (1.003-1.030) H 04/24/20 02:32 Urine Protein <15 mg/dl mg/dL (Negative) 04/24/20 02:32 Urine Glucose (UA) Neg mg/dL (Negative) 04/24/20 02:32 Urine Ketones Tr mg/dL (Negative) 04/24/20 02:32 Urine Blood Lg (Negative) 04/24/20 02:32 Urine Nitrite Neg (Negative) 04/24/20 02:32 Urine Bilirubin Neg (Negative) 04/24/20 02:32 Urine Urobilinogen < 2.0 mg/dL (<2.0) 04/24/20 02:32 Ur Leukocyte Esterase Sm (Negative) 04/24/20 02:32 Urine WBC (Auto) 12.0 /HPF (0.0-6.0) H 04/24/20 02:32 Urine RBC (Auto) 179.0 /HPF (0.0-6.0) 04/24/20 02:32 U Epithel Cells (Auto) < 1.0 /HPF (0-13.0) 04/24/20 02:32 Urine Mucus Few /HPF 04/24/20 02:32 Coronavirus (PCR) Positive (Negative) A 04/24/20 Unknown Microbiology: Microbiology 04/23/20 17:12 Peripheral/Venous Blood Culture - Preliminary Culture in Progress 04/23/20 17:12 Peripheral/Venous Blood Culture - Preliminary Culture in Progress Lassiter/IV: IV Catheter Type [left ac] Peripheral IV Active Medications - Current Medications Current Medications: Generic Name Dose Route Start Last Admin Trade Name Freq PRN Reason Stop Dose Admin Acetaminophen 325 mg 04/23/20 22:36 Tylenol PO Q6H PRN Pain, Mild (1-3) Al Hydrox/Mg Hydrox/Simethicone 15 ml 04/23/20 22:34 Alum-Mag Hydrox-Simeth [phone]/5ml PO Q4H PRN Indigestion Ascorbic Acid 500 mg 04/23/20 23:45 04/24/20 10:36 Vitamin C PO 500 mg BID VIGNESH Administration Dexamethasone 6 mg 04/24/20 10:00 04/24/20 10:36 Decadron IV 05/03/20 10:01 6 mg DAILY VIGNESH Administration Enoxaparin Sodium 40 mg 04/24/20 10:00 04/24/20 10:41 Enoxaparin SUB-Q 40 mg QDAY [facility] Administration Protocol Hydralazine HCl 5 mg 04/23/20 22:37 Apresoline IV Q4H PRN Hypertension Azithromycin 500 mg/ Sodium 250 mls @ 250 mls/hr 04/24/20 10:00 04/24/20 11:41 Chloride IV 250 mls/hr Q24HR VIGNESH Administration Protocol Ondansetron HCl 4 mg 04/23/20 22:34 Zofran IV Q4H PRN Nausea And Vomiting Trazodone HCl 50 mg 04/23/20 22:00 04/24/20 00:21 Desyrel PO 50 mg QHS VIGNESH Administration Zinc Sulfate 220 mg 04/24/20 10:00 04/24/20 10:36 Zinc Sulfate PO 220 mg QDAY VIGNESH Administration
[2020-04-25 06:19] VITALS: BP 130/75
[2020-04-25] MEDS: ENOXAPARIN 40 MG/0.4 ML INJ SUB-Q SCH (09:29)
[2020-04-25] MEDS: dexAMETHasone 4 MG/ML VIAL IV SCH (09:29)
[2020-04-25] MEDS: ASCORBIC ACID 500 MG TAB PO SCH (09:29)
[2020-04-25] MEDS: ZINC SULFATE 220 MG CAP PO SCH (09:30)
[2020-04-25] MEDS ORDERED: AZITHROMYCIN 250 MG TAB PO SCH (10:00)
--- NOTE | 2020-04-25 11:32 | Discharge Summary ---
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 He is evaluated in the context of the global COVID-19 pandemic, which necessitated consideration that the patient might be at risk for infection with the virus that causes COVID-19. patient seen in ED at bedside. patient has shortness of breath, cough and wheezing at the time of assessment. Patient admits marijuana use and he is on oxygen with 02 sat 96 to 98 %. Reviewed lab, mar, and v/s. patient lab shows elevated inflammatory makers including d-dimer, ferritin, LDH, and CRP. Patient is placed on airborne contact isolation pending covid 19 test result. Ed work up shows WBC 13.0, potassium 3.5, C02 28, Cr 1.0, ferritin 438, d-dimer 758 Hemoglobin 13.6 Chest x-ray shows no acute finding On further discussion he reports recent contact with a sick friend but does not know the person has Covid. His girlfriend had Covid about [address] angio chest 1. No CT evidence for pulmonary embolism. 2. No acute findings. 2. Incidental small 4 mm nodules in the right lung. See below for follow-up recommendation. Mr. Fortune is doing very well this morning ambulating without difficulty cough has improved. He was ambulated on room air saturation 97% on room air after ambulating for 6 mins on room air We did have extensive discussion about progression of community spread social distances. On medication for treatments going home. He is to monitor his oxygen level or return to the hospital if his saturation begins to fall below 94% on room air. Extensive smoking cessation had with the patient. (1) 2019 novel coronavirus infection (2) Acute respiratory failure with hypoxia possible underlining bronchitis in addition to COVID-19 (3) cough likely underlining bronchitis (4) Marijuana smoker (5) Leucocytosis Disposition: - TO HOME OR SELFCARE Time spent for discharge: 35 mins Core Measure Documentation - Palliative Care Palliative Care/ Comfort Measures: Not Applicable - Core Measures Any of the following diagnoses?: none Exam - Physical Exam Narrative exam: VITAL SIGNS: Reviewed. GENERAL: The patient appears normally developed, cough morbidly vital signs as documented. HEAD: No signs of head trauma. EYES: Pupils are equal. Extraocular motions intact. EARS: Hearing grossly intact. MOUTH: Oropharynx is normal except missing dentition. NECK: No adenopathy, no JVD. CHEST: Chest with crackles breath sounds bilaterally. No wheezes, rales, or rhonchi. CARDIAC: Regular rate and rhythm. S1 and S2, without murmurs, gallops, or rubs. VASCULAR: No Edema. Peripheral pulses normal and equal in all extremities. ABDOMEN: Soft, non tender and non distended. No rebound or guarding, and no masses palpated. Bowel Sounds normal. MUSCULOSKELETAL: Good range of motion of all major joints. Extremities without clubbing, cyanosis or edema. NEUROLOGIC EXAM: Alert and oriented x 3 No focal sensory or strength deficits. Speech normal. Follows commands. PSYCHIATRIC: Mood normal. SKIN: detail exam as documented in skin assessment - Constitutional Vitals: Temp Pulse Resp BP Pulse Ox 98.2 F 80 18 130/75 94 04/25/20 04:40 04/25/20 04:40 04/25/20 04:40 04/25/20 04:40 04/25/20 04:40 Plan Activity: advance as tolerated, fall precautions Special Instructions: record daily weights, record daily BP diary, smoking cessation, other (monitor pulse ox at home) Additional Instructions: isolation precautions at home for at least 14 additional days Follow up with: PRIMARY BULMARO, [Primary Care Provider] - 3-5 Days KANE BECK MD [Staff Physician] - 14 Days STAN MATHUR MD [Staff Physician] - 14 Days Prescriptions: Dexamethasone [Decadron] 6 mg PO DAILY #8 tablet Ascorbic Acid [Vitamin C] 500 mg PO BID #60 tablet Zinc Sulfate 220 mg PO QDAY #30 capsule Azithromycin [Zithromax TAB] 500 mg PO QDAY #10 tablet
[2020-04-25] MEDS ORDERED: FLU VACC QUAD 2020-2021 (6 months +)/PF 60 0.5 ML SYRINGE IM ONE (12:00)
== END 2020-04-25 13:00 | disposition home or self-care (01) | DRG 177 ==
LOC: ED 15:58 → 3A 04-24 04:01
PROVIDERS: ADMIT Internal Medicine Geriatric Medicine; ATTEND Internal Medicine
DX: U07.1 COVID-19 (principal); J96.01 Acute respiratory failure with hypoxia; F17.210 Nicotine dependence, cigarettes, uncomplicated; D72.829 Elevated white blood cell count, unspecified
CPT/HCPCS: 36415; 71045; 71275; 80053; 81001; 82140; 82550; 82728; 83615; 83735; 83880; 84145; 84484; 85025; 85379; 85610; 86140; 87040; 87086; 93005; 96361; 96365; 96366; 96375; G0378; J0456; J1100; J1650; J7050; Q9967; U0003